=== PATIENT | male | born 1980 | race Caucasian/White ===

== ENCOUNTER 2020-04-11 14:10 | Emergency (ER) | payer OTHER ==
[~2020-04-11] VITALS: Ht 182.9 cm; Wt 90.7 kg
[~2020-04-11 14:10] MED LIST: ATIVAN1 MG PO; COLACE 100 MG100 MG PO; FLEET ENEMA118 ML RC; FLEXERIL PO; NAPROXEN DELAY500 M1 PO; NORCO 5-325 TA1 EACH PO
[2020-04-11] MEDS ORDERED: BACTRIM DS TAB1 EACH PO (14:35)
[2020-04-11] MEDS ORDERED: KEFLEX500 M1 PO (14:35)
[2020-04-11] MEDS ORDERED: MUPIROCIN22 GM TOP (14:35)
[2020-04-11 14:39] VITALS: BP 129/92
== END 2020-04-11 14:39 | disposition home or self-care (01) ==
LOC: M.ERS 14:10
DX: S81.802A Unspecified open wound, left lower leg, initial encounter (principal); L97.128 Non-pressure chronic ulcer of left thigh with other specified severity; L97.118 Non-pressure chronic ulcer of right thigh with other specified severity; M25.561 Pain in right knee; L02.828 Furuncle of other sites; F17.210 Nicotine dependence, cigarettes, uncomplicated; W26.9XXA Contact with unspecified sharp object(s), initial encounter; Y93.89 Activity, other specified; Y92.89 Other specified places as the place of occurrence of the external cause; Y99.8 Other external cause status